=== PATIENT | male | born 1980 | race Two or more races ===

== ENCOUNTER → 2020-09-24 | Day surgery (SDC) | payer OTHER ==
[2020-09-24] VITALS (9 sets, daily range): BP systolic 112–121; BP diastolic 73–91
[~2020-09-24] VITALS: Ht 175.3 cm; Wt 117.9 kg
[~2020-09-24] MED LIST: Atropine Sulfate 0.4mg/ml inj IVP PRN; DiphenhydrAMINE 50mg/ml Inj IVP PRN; HYDROcodone/Acetamin 5/325 tab ORAL PRN; HYDROcodone/Acetamin 7.5/325 tab ORAL PRN; Hydromorphone 0.5mg/0.5ml inj IVP PRN; Ketorolac 30mg Inj IV PRN; LORazepam Inj 2mg/ml 1ml IV PRN; LR 1000ml 1,000 ML IVLG SCH; LR 1000ml ONE; Labetalol 5mg/ml 20ml vial IV PRN; Meperidine 25mg/1ml Inj (FOR RIGORS ONLY) IV PRN; Metoclopramide 10mg/2ml Inj IVP PRN; Midazolam 2mg/2ml Inj IVP PRN; fentaNYL 100 mcg/2 mL IV PRN; oxyCODONE HCL/Acetaminophen 5/325mg ORAL PRN
--- NOTE | 2020-09-24 07:56 | Short Stay Surgery H&P ---
History of Present Illness History of Present Illness Chief Complaint Abdominal pains/GERDs/dysphagia HPI Oswaldo Márquez is a 40 year old male who was admitted on for abdominal pains/GERDs Patient History Allergies: Coded Allergies: No Known Allergies (Unverified , 09/19/20) PAST MEDICAL HISTORY: (1) History of knee surgery Review of Systems Cardiovascular: Reports: no symptoms Respiratory: Reports: no symptoms Skeletal: Reports: trauma Gastrointestinal: Reports: gastro esophageal reflux disease Genitourinary: Reports: no symptoms Neurologic: Reports: no symptoms Endocrine: Reports: no symptoms Hematologic: Reports: no symptoms Physical Exam Skin: normal HENT: normal Heart: normal Lungs: normal Abdomen: abnormal Extremities: normal Genitourinary: normal Plan Plan of Care Upper GI endoscopy with biopsy Preop Interventions None. Summary of Findings See the reports Attestation Are the patient's medical conditions optimized for surgery? Attestation Response: yes Mahad Rai MD Sep 24, 2020 07:56
--- NOTE | 2020-09-24 07:57 | Pre-Procedure Note/Attestation ---
Pre-Procedure Note/Attestation Complete Prior to Procedure Planned Procedure: left Procedure Narrative: Examination of the upper GI tract via endoscopy Indications for Procedure Pre-Operative Diagnosis: R/O Gastritis/peptic ulcer/ esophagitis Attestation I attest that I discussed the nature of the procedure; its benefits; risks and complications; and alternatives (and the risks and benefits of such alternatives), prior to the procedure, with the patient (or the patient's legal claims representative). I attest that, if there was a reasonable possibility of needing a blood transfusion, the patient (or the patient's legal claims representative) was given the [facility] standardized written summary, pursuant to the [place] Blood Safety Act ([place] Health and Safety Code # 1645, as amended). I attest that I re-evaluated the patient just prior to the surgery and that there has been no change in the patient's H&P, except as documented below: Mahad Rai MD Sep 24, 2020 07:57
--- NOTE | 2020-09-24 07:59 | Discharge Instructions ---
Discharge Instructions Discharge Instructions Follow up with: Call the doctor office to recive the results For Congestive Heart Failure Reminder Report to your physician any weight gain of 5 pounds or more in one week. Mahad Rai MD Sep 24, 2020 07:59
--- NOTE | 2020-09-24 08:55 | Anethesia Preoperative Eval ---
Anesthesia Pre-op PMH/ROS General Date of Evaluation: Sep 24, 2020 Time of Evaluation: 09:02 Anesthesiologist: Baylee ASA Score: ASA 3 Mallampati Score Class I : Soft palate, uvula, fauces, pillars visible Class II: Soft palate, uvula, fauces visible Class III: Soft palate, base of uvula visible Class IV: Only hard plate visible Mallampati Classification: Class III Surgeon: Cecelia Diagnosis: Abd Pain Surgical Procedure: EGD Anesthesia History: none Family History: no anesthesia problems Allergies: Coded Allergies: No Known Allergies (Unverified , 09/19/20) Medications: see eMAR Patient NPO?: Yes Past Medical History Gastrointestinal/Genitourinary: Reports: GERD, other - IBS Other: obesity - Morbid BMI 41 Anesthesia Pre-op Phys. Exam Physician Exam Last Vital Signs Date Time Temp Pulse Resp B/P (MAP) Pulse Ox O2 Delivery O2 Flow Rate FiO2 09/24/20 08:11 Room Air 09/24/20 08:09 97.6 58 18 112/76 98 Constitutional: NAD Neurologic: CN 2-12 intact Cardiovascular: RRR Respiratory: CTA Gastrointestinal: S/NT/ND Airway Exam Mallampati Score: Class III MO: limited ROM: limited Teeth: missing, intact Anesthesia Pre-op A/P Risk Assessment & Plan Assessment: ASA 3 Plan: TIVA Status Change Before Surgery: Blaise Bright MD Sep 24, 2020 08:55
--- NOTE | 2020-09-24 08:56 | Immediate Post-Op Evaluation ---
Immediate Post-Op Evalulation Immediate Post-Op Evalulation Procedure: EGD Date of Evaluation: Sep 24, 2020 Time of Evaluation: 09:43 IV Fluids: 600 LR Blood Products: 0 Estimated Blood Loss: 1 Urinary Output: 0 Blood Pressure Systolic: 119 Blood Pressure Diastolic: 91 Pulse Rate: 85 Respiratory Rate: 16 O2 Sat by Pulse Oximetry: 100 Temperature (Fahrenheit): 97.5 Pain Score (1-10): 1 Nausea: No Vomiting: No Complications 0 Patient Status: awake, reacts, patent, none Hydration Status: adequate Blaise Beach MD Sep 24, 2020 08:56
--- NOTE | 2020-09-24 08:57 | 48 Hour Post Anesthesia Eval ---
Post Anesthesia Evaluation Procedure: EGD Date of Evaluation: Sep 24, 2020 Time of Evaluation: 11:53 Blood Pressure Systolic: 121 0: 89 Pulse Rate: 66 Respiratory Rate: 18 Temperature (Fahrenheit): 97.6 O2 Sat by Pulse Oximetry: 100 Airway: patent Nausea: No Vomiting: No Pain Intensity: 1 Hydration Status: adequate Cardiopulmonary Status: Stable Mental Status/LOC: patient returned to baseline Follow-up Care/Observations: 0 Post-Anesthesia Complications: 0 Follow-up care needed: N/A Blaise Beach MD Sep 24, 2020 08:57
--- NOTE | 2020-09-24 09:33 | Endoscopy Procedure Note ---
Endoscopy Procedure Note General Indication for Procedure: Upper Gi endoscopy and biopsy Procedures Performed: EGD - Completely normal upper GI endoscopy, biopsy was taken per random from antrum and gastric body. Specimen: yes Pt Tolerated Procedure Well: Yes Estimated Blood Loss: none Anesthesia Anesthesiologist: Dr. Beach Anesthesia: moderate sedation Medications Medication Given: see anesthesia record Inserted Devices Implant(s) used?: No Quality Quality of Bowel Preparation: Excellent Was there any complications?: No GI Core Measures 50 yrs or older w/o bx or poly: Not Applicable 10yrs. F/U recommended: Not Applicable If not recommended, why?: Med reason:<3 yrs.: System Reason:<3 yrs.: Mahad Rai MD Sep 24, 2020 09:33
--- NOTE | 2020-09-24 11:14 | Operative Note - Dictated ---
DATE OF OPERATION: 09/24/2020 PROCEDURE: Esophagogastroduodenoscopy with biopsy. PREOPERATIVE DIAGNOSES: Abdominal pain, history of gastroesophageal reflux and dysphagia. POSTOPERATIVE DIAGNOSIS: Completely normal upper GI endoscopy. Biopsy was taken per random from the antrum and gastric body. MEDICATION USED: Per Dr. Beach, anesthesiologist. INSTRUMENT: GIF Olympus upper GI video endoscope. DESCRIPTION OF PROCEDURE: The patient after arriving endoscopy unit, was told about risks and benefits of the procedure, which he accepted and signed informed consent. He was then put on the left lateral decubitus position. After adequate IV sedation, the scope was gently passed through the cricopharyngeal area, was lodged into the upper esophagus and gradually was advanced towards gastroesophageal junction. The entire length of esophagus was normal without any pathology. There was no exudate, stricture, polyps, tumors, etc. GE junction also looked completely normal without any evidence of Camp's or hiatal hernia. At this time, the scope was then passed into the stomach. Gastric cavity was distended with insufflation of air and gradually the areas of the fundus and the body and the antrum were examined, which revealed normal gastric lining and coverage without any evidence of inflammatory process or gastritis, polyps, tumors, etc. At this time, one random biopsy from the gastric body and subsequently another one from the antral area was obtained and subsequently scope was passed through the pylorus. First and second portion of duodenum were found to be also within normal limits without any pathology. At this time, the scope was pulled back into the stomach. A retroflexion maneuver was applied and the area of the gastroesophageal junction was examined in a closer fashion, which revealed normal findings. Finally, the scope was pulled out and procedure was terminated. The patient tolerated the procedure well and left the endoscopy room in a good condition. Said Gus Rai DR: BALJIT JOB#: [id number] CC:
== END | disposition home or self-care (01) ==
LOC: GAS 07:40
DX: R10.9 Unspecified abdominal pain (principal); K21.9 Gastro-esophageal reflux disease without esophagitis; R13.10 Dysphagia, unspecified; K58.9 Irritable bowel syndrome, unspecified; E66.01 Morbid (severe) obesity due to excess calories; Z68.38 Body mass index [BMI] 38.0-38.9, adult
CPT/HCPCS: 43239; 94003; J2250; J2704; J7120; U0004; 94150